=== PATIENT | female | born 1985 | race Hispanic/Latino ===

== ENCOUNTER 2016-04-18 20:50 | Emergency (ER) | payer OTHER ==
[~2016-04-18] VITALS: Ht 160 cm; Wt 98.0 kg
[~2016-04-18 20:50] MED LIST: ENDOCET 325 MG-1 TA1 PO; MOTRIN800 MG PO
[2016-04-18 20:58] VITALS: BP 140/84
--- NOTE | 2016-04-18 21:40 | ED INFLUENZA/URI COMPLAINT ---
History of Present Illness General Chief Complaint: Upper Respiratory Sx/Fever Stated Complaint: UPPER RESP SYMPTOMS Source: patient, old records Exam Limitations: no limitations Vital Signs & Intake/Output Vital Signs & Intake/Output Vital Signs Date Time Temp Pulse Resp B/P Pulse O2 O2 Flow FiO2 Ox Delivery Rate 04/18 2057 97.1 94 18 140/84 98 Room Air Room Air Allergies Coded Allergies: NO KNOWN ALLERGIES (07/31/11) Reconcile Medications Ibuprofen (Motrin) 800 MG TAB 1 TAB PO TID PRN PAIN OXYCODONE HCL/ACETAMINOPHEN (Endocet 5-325 Tablet) 1 TAB TAB 1 TAB PO Q6H PRN PAIN Triage Note: TRIAGE: 31 Y/O FEMALE PRESENTS C/O COUGH, CONGESTION SINCE TUESDAY. REPORTS PAIN WITH COUGHING. AFEBRILE IN TRIAGE. Triage Nurses Notes Reviewed? yes Onset: Abrupt Duration: day(s): (3), constant Timing: recent history Severity: mild, moderate Severity Numbers: 4 Prior Episodes/Possible Cause: occassional episodes No Modifying Factors: none Associated Symptoms: cough : No Patient currently breastfeeds: No HPI: 21-year-old female presents to emergency room complaining of a nonproductive cough and rhinorrhea and congestion for the past 3 days. She denies any fever chills abdominal pain shortness of breath chest pain nausea vomiting diarrhea. No ear pain no sick contacts or recent travel. She has not attempted taking any vrzd-slz-zszqeuj medications. There are no modifying factors or associated symptoms otherwise. Past History Travel History Traveled to [place] past 21 day No Medical History Any Pertinent Medical History? see below for history Respiratory: asthma Psychiatric: depression, PTSD Endocrine: diabetes Surgical History Surgical History: non-contributory Psychosocial History What is your primary language Swedish Tobacco Use: Never used ETOH Use: denies use Illicit Drug Use: denies illicit drug use Family History Hx Contributory? No Review of Systems Review of Systems Constitutional: Reports: see HPI. All Other Systems: Reviewed and Negative Comments Review of systems: See HPI, All other systems negative. Constitutional, no chills no fever, no malaise HEENT: No visual changes no sore throat no congestion, no ear pain Cardiovascular: No chest pain , no palpitation Skin, no jaundice no rashes, no change in skin Respiratory: No dyspnea Cough no sputum no hemoptysis GI: No nausea no vomiting, no diarrhea, no bloating/constipation : No dysuria No hematuria Muscle skeletal: No joint pain, no back pain, no neck pain, Neurologic: No numbness no headache Psych: No stress Heme/endocrine: No bruising no bleeding Immunology: No lymphadenopathy Physical Exam Physical Exam General Appearance: well developed/nourished, no apparent distress, alert, awake Ears, Nose, Throat: normal ENT inspection, moist mucous membrane, hearing grossly normal, Tympanic normal, pharynx normal Comments: Well-developed well-nourished patient in no apparent distress. Head/Face: Atraumatic, no maxillary/frontal sinus tenderness, no facial swelling Eyes: PERRL, EOMI, no conjunctival injection. No nystagmus Ear:External auditory canal and Tympanic membranes clear, no erythema, no FB. Nose: atraumatic.Normal inspection: No bleeding, no septal hematoma Throat: Moist mucous membranes.Pharynx normal. No pharyngeal erythema/exudate seen. No stridor/drooling or assymetry. No swelling or edema. Neck: Supple, no lymphadenopathy, FROM Back: FROM, Nontender Cardiovascular: Regular rate and rhythms no murmurs rubs or gallops, Respiratory: Chest nontender.There were no bony deformities, no asymmetry. No respiratory distress. Patient speaking in full complete sentences. Breath sounds clear to auscultation bilaterally: NO W/R/R Extremities: full range of motion Neuro: Alert and oriented x3 Skin: Warm & dry;No appreciable rash on exposed skin Psych: Mood affect normal, normal memory normal judgment. Core Measures Severe Sepsis Present: No Septic Shock Present: No Progress Differential Diagnosis: influenza, otitis, pneumonia, pharyngitis, sinusitis, BRONCHITIS Plan of Care: Advise supportive care prescription for Robitussin with codeine Z-Erich provided. Advised follow-up with her primary care she feels comfortable plan patient clinically appears well afebrile nontoxic appearing cleared for discharge Initial ED EKG: none Departure Departure Time of Disposition: 2145 Disposition: HOME OR SELF CARE Condition: Stable Clinical Impression Primary Impression: URI (upper respiratory infection) Referrals: TAMI BAEZA,BETSY Chatman (PCP/Family) Referred to [facility] as new patient No Additional Instructions: Z-Erich as directed, Robitussin with codeine for cough use the Nasonex you have at home to help with congestion as well as oimc-svm-folhxzw Mucinex. Tylenol Motrin for pain. Plenty of fluids rest these prescriptions were sent to [facility] pharmacy Departure Forms: Customer Survey General Discharge Information Prescriptions: Current Visit Scripts Robitussin AC (Guaifenesin-Codeine Syrup) 10 ML PO Q6HR PRN COUGH #200 ML Azithromycin (Zithromax) 1 DP PO AD #6 TAB 2 the first day followed by 1 for days 2-5
[2016-04-18] MEDS ORDERED: ZITHROMAX250 M2 PO (21:47)
[2016-04-18] MEDS ORDERED: GUAIFENESIN-COD10 ML PO (21:47)
[2016-09-03] MEDS ORDERED: WELLBUTRIN SR150 M1 PO (15:46)
[2016-09-03] MEDS ORDERED: ATORVASTATIN CA10 M1 PO (15:47)
[2016-09-03] MEDS ORDERED: KLONOPIN0.5 M1 PO (15:47)
[2016-09-03] MEDS ORDERED: PROTONIX40 M3 PO (15:47)
[2016-09-03] MEDS ORDERED: METFORMIN HCL750 M1 PO (15:47)
[2016-09-03] MEDS ORDERED: PRAZOSIN (15:48)
[2016-09-03] MEDS ORDERED: PROAIR HFA8.5 GM INH (15:48)
[2016-09-03] MEDS ORDERED: SYMBICORT 16010.2 GM INH (15:48)
== END 2016-04-18 21:55 ==
LOC: ERH 20:50
DX: J06.9 Acute upper respiratory infection, unspecified (principal)

== ENCOUNTER 2016-09-09 02:40 | Inpatient (IN) | payer OTHER ==
[~2016-09-09] VITALS: Ht 160 cm; Wt 112.9 kg
[~2016-09-09 02:40] MED LIST changes: +ATORVASTATIN CA10 M1 PO; +GUAIFENESIN-COD10 ML PO; +KLONOPIN0.5 M1 PO; +METFORMIN HCL750 M1 PO; +PRAZOSIN; +PROAIR HFA8.5 GM INH; +PROTONIX40 M3 PO; +SYMBICORT 16010.2 GM INH; +WELLBUTRIN SR150 M1 PO; +ZITHROMAX250 M2 PO
--- NOTE | 2016-09-09 09:40 | Admission Core Measures ---
Admission Meds I reviewed the following Meds: Current Medications Sig/Bekah Start time Last Medication Dose Stop Time Status Admin Cefazolin Sodium 2,000 MG ONCE 09/09 NR (Kefzol-Ancef Inj) 09/09 2358 Dexamethasone 10 MG ONCE 09/09 NR (Decadron) 09/09 2358 Heparin Sodium 5,000 UNIT ONCE 09/09 0000 NR (Porcine) 09/09 2358 Acute Coronary Syndrome Inclusion Criteria ACS Diagnosis No Inpatient Core Measures LDL Reminder: If No, please order W/I first 24hr of stay Congestive Heart Failure Inclusion Criteria CHF Diagnosis No Cerebrovascular accident Inclusion Criteria CVA/TIA Diagnosis No Inpatient Core Measures Bedside Swallow Eval Reminder: If BSE failed, place ST order Antithrombotic Reminder: Order Antithrombotic Medication by end of day 2 Antithrombotic Reminder: Document Reason Antithrombotic Not ordered by end of day 2 AFIB/Flutter Reminder: If Present, add to problem list AFIB/Flutter Reminder: Order Anticoag Medication for pts with AFIB/Flutter Atherosclerosis Reminder: If Present, add to problem list LDL Reminder: If No, please order W/I first 24hr of stay PT Order Reminder: If No, please order Venous thromboembolism Inpatient Core Measures VTE Risk Factors: Obesity, Surgery [facility] prophylaxis d/t No contraindications No VTE Pharm Prophylaxis d/t No contraindications Inclusion Criteria - Per Current guidelines, there needs to be overlap - treatment for the first 5 days of Warfarin therapy. - Parenteral Anticoagulation (IV or SC) needs to be - given along with Warfarin therapy. VTE Diagnosis No VTE Type NONE VTE Confirmed by (Test) NONE Problem List As ranked by this Provider includes Assessment & Plan 1. Status post gastric bypass for obesity HOME MEDS Home Med List Albuterol Sulfate (Proair Hfa) 90 MCG HFA.AER.AD 2 PUF INH Q4-6 PRN PRN ASTHMA (Reported) Atorvastatin Calcium 10 MG TABLET 1 TAB PO DAILY CHOLESTEROL (Reported) Budesonide/Formoterol Fumarate (Symbicort 160-4.5 Mcg Inhaler) 160 MCG-4.5 MCG/ ACTUATION HFA.AER.AD 2 PUF INH BID ASTHMA (Reported) Bupropion HCl (Wellbutrin Sr) 150 MG TABLET.ER 0.5 TAB PO DAILY PTSD ( Reported) Clonazepam (Klonopin) 0.5 MG TABLET 1 TAB PO DAILY NEEDED PRN ANXIETY ( Reported) Metformin HCl (Metformin HCl ER) 750 MG TAB.ER.24H 1 TAB PO BID DM II ( Reported) Pantoprazole Sodium (Protonix) 40 MG TABLET.DR 1 TAB PO DAILY GERD (Reported)
--- NOTE | 2016-09-09 11:58 | Operative Report ---
Operative/Inv Procedure Report Surgery Date: 09/09/16 Name of Procedure: Charlotte-en-Y gastric bypass Pre-Operative Diagnosis: Morbid obesity BMI of 44 Post-Operative Diagnosis: Same Estimated Blood Loss: less than 50ml Surgeon/Marine Insulator: ROSA BAEZA,MANSOOR MEDINA Anesthesia: general endotracheal tube IV Fluids: Lactated Ringer's Implants: None Urine Output: Not measured Drains: CARMELINA 1 Specimens: None Complications: None Condition: Stable Operative Indication: See admitting H&P Operative/Procedure Note Note: After informed consent and proper identification the patient was taken to the operating room and placed on the operating room table in the supine position. Venodyne stockings were applied she underwent a general endotracheal anesthetic abdomen was prepped and draped in normal sterile fashion using a Monisha Visiport and a 0 laparoscope through 1 cm incision left upper quadrant we entered the abdominal cavity without difficulty. We insufflated with 14 mm of CO2 pressure we had excellent visualization this liver was smooth and glistening. We placed additional trochars 25 mm trochars in the left subcostal margin, a 5 mm trocar in the right subcostal margin, a 12 mm trocar in the right mid abdomen. We inserted the Agatha liver retractor in the upper midline to retract the left lobe of the liver. We began dissection by using a ultrasonic scalpel taking down the angle his. The stomach was right up against the spleen and the left coral. We made a window between the tissue. We then began dissecting on the lesser curvature proximally past the third gastric vein approximate 10 cm from the GE junction and created a retrogastric space. We placed a few 5 mm clips on a small bleeder on the lesser curvature. We then passed a completely and stapler 60 cm purple cartridge with seam guard and fired transversely after having anesthesia remove the orogastric tube that they had placed to decompress the stomach. We then fired 2 more firings of the 60 cm purple cartridge to completely transect the newly created pouch from the remnant stomach. We then turned our attention to the omentum reflected towards the head identified the ligament of Treitz and measured 50 cm and divided the small bowel with a Endo MADHAV fisher 60 stapler. We marked the proximal biliopancreatic limb with a 10 mm clip from the 10 mm clip business services sales agent. We slightly divided the mesentery. We were able to divide the greater and lesser omentum with the ultrasonic scalpel. We had no tension pulling the Charlotte limb up to the gastric pouch and edgardo performed gastrojejunal anastomosis with a side to side purple stapler at approximately 30 cm by making an opening in the jejunum and the opening in the pouch we closed the opening with a 2 layered running 2-0 Vicryl suture we did a leak test using both air or methylene blue and there is no evidence of a leak we then measured the Charlotte limb 120 cm and performed a side to side anastomosis between the Charlotte limb and the biliopancreatic limb with a Endo MADHAV fisher load 60 cm stapler we placed 3 silk retraction sutures and then stapled across the opening with a fisher 60 cm stapler. We closed the mesenteric defect with 2-0 Tycron suture figure-of -eight 2. We removed all trochars and instruments under direct visualization. Removed the Estefany tube that was placed for evaluation of the leak tests. All sponge and instrument counts were correct we closed the incisions with 4-0 Monocryl subcuticular stitches Steri-Strips and dry sterile dressings were placed. The patient was extubated and taken the recovery room in stable condition Discharge Disposition: PACU
--- NOTE | 2016-09-09 14:05 | PN- Bariatrics ---
Subjective Subjective: The patient was seen this afternoon postoperatively. She reports that her pain is under adequate control and denies any nausea the current time. She had no other complaints and denies any chest pain or difficulty breathing. Objective Vital Signs and I&Os Vital signs: Blood pressure 140/76, pulse 78, temperature 90.9, O2 sats saturation 94% on room air I's and O's: 1500 ML's in of lactated Ringer's/positive postoperative void/EBL 50 ML/CARMELINA 60 mL Physical Exam: Gen.: Alert and in no obvious distress Skin: Warm and dry Cardiac: S1-S2 regular Pulmonary: Bilateral breath sounds are equal with good exchange Abdomen: Soft, obese, appropriate incisional tenderness, bowel sounds sluggish. Port sites are clean, dry, and intact. There is a CARMELINA 1 holding suction with serosanguineous drainage in the bulb Extremities: Bilateral lower extremities are warm without calf tenderness or significant edema. Assessment/Plan Assessment/Plan Assessment: 31-year-old female status post laparoscopic gastric bypass. Postoperatively the patient is progressing as expected and her pain is under adequate control. Plan: Stage I diet and nothing by mouth at midnight for an upper GI in the morning Out of bed and ambulate PRN pain medications, antiemetics, antipyretics. GI and DVT prophylaxis Follow-up morning laboratory studies Strict I's and O's Keep CARMELINA to self suction Incentive spirometry Resume home medications Every 6 hours Accu-Cheks with sliding scale insulin coverage 2 doses of postoperative prophylactic antibiotics Core Measures/Miscellaneous Venous Thromboembolism VTE Risk Factors: Obesity, Surgery VTE Contraindications: No Contraindications VTE Diagnosis: No VTE Type: NONE VTE Confirmed by (Test): NONE Beta Eliezer Is Beta Eliezer a Home Med? No Antibiotics Is Patient on Antibiotics? Yes If Yes: prophylaxis
[2016-09-09] MEDS ORDERED: HYCET 7.5 MG-3473 ML PO (14:06)
--- NOTE | 2016-09-09 14:12 | Patient Discharge Instructions ---
Discharge Instructions General Discharge Information You were seen/treated for: Morbid obesity You had these procedures: Laparoscopic gastric bypass Watch for these problems: Significantly increased pain, nausea, or temperatures over 101 Increased redness or drainage from around the incisions Chest pain or difficulty breathing No bath, but you may shower: Yes Other wound care: When you get home he may remove all dressings leaving white strips intact until seen by your surgeon. Shower regularly but no bath and pat dry incisions. Special Instructions: See preprinted information booklet Ambulate frequently May use Gas-X for gas pain Diet Recommended Diet: Bariatric Activity Activity Self Limited: Yes Pounds, do NOT lift more than: 10 Other activity limits: No driving or operating heavy machinery until okay with your surgeon and off all pain medications Acute Coronary Syndrome Inclusion Criteria At DC or during hospital stay patient has or had the following: ACS DIAGNOSIS No Discharge Core Measures Meds if any: Prescribed or Continued at Discharge Meds if any: NOT Prescribed or Continued at Discharge Congestive Heart Failure Inclusion Criteria At DC or during hospital stay patient has or had the following: CHF DIAGNOSIS No Discharge Core Measures Meds if any: Prescribed or Continued at Discharge Meds if any: NOT Prescribed or Continued at Discharge Cerebrovascular accident Inclusion Criteria At DC or during hospital stay patient has or had the following: CVA/TIA Diagnosis No Discharge Core Measures Meds if any: Prescribed or Continued at Discharge Meds if any: NOT Prescribed or Continued at Discharge Venous thromboembolism Inclusion Criteria VTE Diagnosis No VTE Type NONE VTE Confirmed by (Test) NONE Discharge Core Measures - Per Current guidelines, there needs to be overlap - treatment for the first 5 days of Warfarin therapy. - If discharged on Warfarin prior to 5 days of - overlap therapy, the patient will need to be - assessed for post discharge needs including - *Post discharge parental anticoagulation - *Warfarin and/or parental anticoagulation education - *Follow up date to check INR post discharge At least 5 days overlap therapy as Inpatient No Meds if any: Prescribed or Continued at Discharge Note: Overlap Therapy is Warfarin and Anticoagulant Meds if any: NOT Prescribed or Continued at Discharge
--- NOTE | 2016-09-09 14:14 | Surg Short-stay <48hrs Dis Sum ---
Visit Information Visit Dates Admission Date: 09/09/16 Discharge Date: 09/12/16 Surgical Short Stay DC Summary Admission Diagnosis: Morbid obesity Final Diagnosis: Same Procedure(s): Laparoscopic gastric bypass Summary/Significant Findings: The patient is and 09/09/2016. She was brought to the operating theater where she underwent a laparoscopic gastric bypass. Postoperative the patient's pain was under adequate control, she tolerated a stage I diet without nausea, and all laboratory studies/vital signs were stable. The patient was discharged with an uneventful hospital course. Condition at Discharge: Stable Discharge Disposition: home or self care Discharge instructions provided to patient/family: Yes Post discharge follow-up plan: Call the office to be seen in one week
[2016-09-09 14:50] VITALS: BP 144/100
[2016-09-09 14:54] VITALS: BP 144/100
[2016-09-09 17:09] VITALS: BP 144/100
[2016-09-09 19:24] VITALS: BP 118/80
[2016-09-09 22:04] VITALS: BP 140/82
[2016-09-10 00:52] VITALS: BP 138/82
[2016-09-10 04:45] VITALS: BP 110/68
--- NOTE | 2016-09-10 07:18 | PN- Bariatrics ---
Subjective Subjective: Reports nausea yesterday has since resolved. Currently npo awaiting upper gi study. Ambulated once this morning with some dizziness. No shortness of breath. No chest pains. Voiding well. No flatus yet. Objective Vital Signs and I&Os Vital Signs Date Time Temp Pulse Resp B/P B/P Pulse O2 O2 Flow FiO2 Mean Ox Delivery Rate 09/10 0600 97 Room Air 09/10 0445 98.3 76 20 110/68 95 09/10 0052 98.1 75 20 138/82 96 09/10 0035 92 95 09/10 0000 CPAP 09/09 2242 98 94 09/09 2204 98.7 95 18 140/82 95 Room Air 09/09 2200 95 Room Air 09/09 2000 95 Room Air 09/09 1924 98.6 93 19 118/80 95 09/09 1800 95 Room Air 09/09 1709 98.1 96 18 144/100 93 Room Air 09/09 1643 Room Air Room Air 09/09 1600 95 Room Air 09/09 1454 97.9 94 18 144/100 95 Room Air 09/09 1450 97.9 94 18 144/100 95 Room Air 09/09 1450 95 Room Air Intake & Output 09/10 0800 09/10 0000 09/09 1600 09/09 0800 09/09 0000 09/08 1600 Intake Total 1000 1300 Output Total 1530 350 Balance -530 950 Intake, IV 1000 1000 Intake, Oral 300 Output, 30 50 Drainage Output, Urine 1500 300 Patient 249 lb Weight Weight Reported by Patient Measurement Method Physical Exam: General - alert & oriented x 3. comfortable. no acute distress. Lungs - clear bilaterally. no w/r/r. Cardiac - s1s2. reg. Abdomen - soft. dressings c/d/i. CARMELINA drain with serosang drainage. expected betzaida- incisional tenderness. Extremities - warm bilaterally. no c/c/e. calves soft and nontender b/l. athrombics active. Current Medications: Current Medications Sig/Bekah Start time Last Medication Dose Route Stop Time Status Admin Acetaminophen 1,000 MG .STK-MED ONE 09/09 0719 DC IV 09/09 0720 Acetaminophen/ 15 ML Q6P PRN 09/09 1445 AC 09/09 Hydrocodone Bitart PO 2209 Albuterol Sulfate 2 PUF Q4 09/09 1000 AC 09/10 INH 0613 Budesonide/ 2 PUF BID 09/09 1000 AC 09/09 Formoterol Fumarate INH 2119 Bupropion HCl 75 MG DAILY 09/09 1000 AC 09/09 PO 1647 Cefazolin Sodium 1,000 MG IQ8 09/09 1600 DC 09/10 IV 09/10 0001 0015 Cefazolin Sodium 2,000 MG ONCE 09/09 0000 DC IV 09/09 2359 Clonazepam 0.5 MG TID PRN 09/09 1000 AC PO 09/16 0959 Dexamethasone 10 MG ONCE 09/09 0000 DC IV 09/09 2359 Doxazosin Mesylate 2 MG AT BEDTIME 09/09 2200 AC 09/09 PO 2118 Doxazosin Mesylate 1 MG DAILY 09/09 1000 AC 09/09 PO 1647 Fentanyl Citrate 250 MCG .STK-MED ONE 09/09 0719 DC IM 09/09 0720 Heparin Sodium 5,000 UNIT Q8 09/09 1400 AC 09/10 (Porcine) SC 0613 Heparin Sodium 5,000 UNIT ONCE 09/09 0000 DC (Porcine) SC 09/09 2359 Hydromorphone HCl 1 MG Q4P PRN 09/09 1445 AC 09/10 IV 0259 Insulin Aspart 0 Q6 09/09 1200 AC 09/10 SC 0613 Labetalol HCl 100 MG .STK-MED ONE 09/09 1027 DC IV 09/09 1028 Midazolam HCl 4 MG .STK-MED ONE 09/09 0719 DC IM 09/09 0720 Ondansetron HCl 4 MG Q6P PRN 09/09 1445 AC 09/10 IV 0259 Pantoprazole Sodium 40 MG DAILY 09/09 1000 AC 09/09 IV 1647 Potassium Chloride 20 MEQ Q8H 09/09 1645 AC 09/10 Dextrose/Sodium 1,000 ML IV 0107 Chloride Potassium Chloride 20 MEQ .Q8H 09/09 1445 CAN Dextrose/Sodium 1,000 ML IV Chloride Simethicone 40 MG Q6P PRN 09/09 1445 AC 09/09 PO 1647 Results Last 48 Hours of Labs: Laboratory Tests 09/10 625 Chemistry Sodium Pending Potassium Pending Chloride Pending Carbon Dioxide Pending Anion Gap Pending BUN Pending Creatinine Pending BUN/Creatinine Ratio Pending Hematology CBC w Diff Pending WBC Pending RBC Pending Hgb Pending Hct Pending MCV Pending MCH Pending RDW Pending Plt Count Pending MPV Pending PUBS MCHC Pending Assessment/Plan Assessment/Plan This 31-year-old female with hx morbic obesity (bmi 44) is POD#1 s/p lap gastric bypass nausea resolved after zofran currently npo awaiting upper gi study decrease iv fluids to 75 mls/hr accuchecks improving. off metformin. hep sc - dvt ppx protonix - gi ppx encouraged oob/ambulation IS teaching f/u labs and upper gi study monitor CARMELINA drain output betzaida-operative ancef complete will d/w Core Measures/Miscellaneous Venous Thromboembolism VTE Risk Factors: Obesity, Surgery VTE Contraindications: No Contraindications VTE Diagnosis: No VTE Type: NONE VTE Confirmed by (Test): NONE Beta Eliezer Is Beta Eliezer a Home Med? No Antibiotics Is Patient on Antibiotics? Yes If Yes: prophylaxis Is Patient on Antibiotics? Yes If Yes: prophylaxis
[2016-09-10 08:00] LABS: ABSOLUTE BASOPHIL COUNT 0 /CUMM (0.0-0.2); ABSOLUTE EOSINOPHIL COUNT 0 /CUMM (0.0-0.7); ABSOLUTE GRANULOCYTE CT 5.3 /CUMM (1.4-6.5); ABSOLUTE LYMPH COUNT 1.1 /CUMM (1.2-3.4); ABSOLUTE MONOCYTE COUNT 0.5 /CUMM (0.10-0.60); BASOPHIL % 0.2 % (0.0-2.0); EOSINOPHIL % 0.1 % (0-5); GRANULOCYTE % 76.7 % (42.2-75.2); HEMATOCRIT 37.7 % (37-47); MEAN CORPUSCULAR HGB 27.3 PG (27.0-31.0); MEAN CORPUSCULAR HGB CONC 33.2 G/DL (33.0-37.0); MEAN CORPUSCULAR VOLUME 82.2 FL (81.0-99.0); MEAN PLATELET VOLUME 8.8 FL (7.4-10.4); PLATELET COUNT 340 /CUMM (130-400); RBC DISTRIBUTION WIDTH 12.4 % (11.5-14.5); RED BLOOD CELL CT 4.59 /CUMM (4.20-5.40); WHITE BLOOD CELL COUNT 6.9 /CUMM (4.8-10.8)
--- NOTE | 2016-09-10 10:18 | RADIOLOGY REPORT ---
EXAMINATION: FLUOROSCOPY UPPER GI WITH GASTROGRAFIN WITH KUB CLINICAL INFORMATION: 1 day status post gastric bypass study. Postoperative evaluation. COMPARISON: None. TECHNIQUE: A preliminary protohistorian view of the abdomen was performed followed by a limited Gastrografin upper GI study using 30 ml of Gastroview with the patient in the semiupright position. 3 spot films and 2 seen in the loop series were acquired. FINDINGS: The preliminary protohistorian view of the abdomen demonstrates a drain and postsurgical suzette in the epigastric region. Mild gaseous distention of bowel loops is seen without abnormal bowel distention seen. Esophageal distensibility and motility is normal. The GE junction is located below the level of the diaphragm and no GE reflux seen. The remnant gastric pouch is normal with no abnormal distention or contrast leak seen. There is prompt emptying of contrast into the anastomosed small bowel, which is unremarkable in appearance. FLUOROSCOPY TIME: 14 seconds. IMPRESSION: Unremarkable postoperative appearance of the stomach status post gastric bypass surgery. No evidence of abnormal pouch distention, contrast leak or outlet obstruction seen.
[2016-09-10 22:00] VITALS: BP 142/84
[2016-09-11 07:21] VITALS: BP 128/90
--- NOTE | 2016-09-11 13:30 | PN- Bariatrics ---
Subjective Subjective: Patient with intermittent nausea and pain, pain medication is helping her. Objective Vital Signs and I&Os Vital Signs Date Time Temp Pulse Resp B/P B/P Pulse O2 O2 Flow FiO2 Mean Ox Delivery Rate 09/11 0721 98.5 82 18 128/90 96 Room Air 09/11 0600 96 09/100 97 Room Air 09/10 2199 98.5 79 16 142/84 97 Room Air 09/10 1600 97 Room Air Intake & Output 09/11 0809/11 0000 09/10 0809/10 0000 Intake Total 600 3092 667 7818 1300 Output Total 40 309 662 9057 350 Balance 560 540 440 -530 950 Intake, IV 600 418 239 4172 1000 Intake, Oral 500 560 300 Output, 40 60 20 30 50 Drainage Output, Urine 902 764 5984 300 Patient 249 lb Weight Physical Exam: Well-developed well-nourished no apparent distress. HEENT: Atraumatic, extraocular motion intact Neck: Supple, no lymphadenopathy Respiratory: No respiratory distress Abdomen: soft and mildly tender in the epigastrium and right upper quadrant around the drain site. Mild serous sanguinous discharge at dressing and approximately 30 mL in the CARMELINA drain Extremities: No edema, no calf pain Neuro: Alert and oriented x3 Psych: Mood affect normal, normal memory normal judgment. Skin is warm and dry Results Last 48 Hours of Labs: Laboratory Tests 09/10 625 Chemistry Sodium (137 - 145 mmol/L) 142 Potassium (3.5 - 5.1 mmol/L) 4.3 Chloride (98 - 107 mmol/L) 108 H Carbon Dioxide (22 - 30 mmol/L) 22 Anion Gap (5 - 16) 12 BUN (7 - 17 mg/dL) 4 L Creatinine (0.5 - 1.0 mg/dL) 0.6 Estimated GFR (>60 ml/min) > 60 BUN/Creatinine Ratio (7 - 25 %) 6.7 L Hematology CBC w Diff NO MAN DIFF REQ WBC (4.8 - 10.8 /CUMM) 6.9 RBC (4.20 - 5.40 /CUMM) 4.59 Hgb (12.0 - 16.0 G/DL) 12.5 Hct (37 - 47 %) 37.7 MCV (81.0 - 99.0 FL) 82.2 MCH (27.0 - 31.0 PG) 27.3 RDW (11.5 - 14.5 %) 12.4 Plt Count (130 - 400 /CUMM) 340 MPV (7.4 - 10.4 FL) 8.8 Gran % (42.2 - 75.2 %) 76.7 H Lymphocytes % (20.5 - 51.1 %) 15.8 L Monocytes % (1.7 - 9.3 %) 7.2 Eosinophils % (0 - 5 %) 0.1 Basophils % (0.0 - 2.0 %) 0.2 Absolute Granulocytes (1.4 - 6.5 /CUMM) 5.3 Absolute Lymphocytes (1.2 - 3.4 /CUMM) 1.1 L Absolute Monocytes (0.10 - 0.60 /CUMM) 0.5 Absolute Eosinophils (0.0 - 0.7 /CUMM) 0 Absolute Basophils (0.0 - 0.2 /CUMM) 0 PUBS MCHC (33.0 - 37.0 G/DL) 33.2 Recent Imaging Studies: Unremarkable upper GI series yesterday Assessment/Plan Assessment/Plan This 31-year-old female with hx morbic obesity (bmi 44) is POD#2 s/p lap gastric bypass Zofran as needed for nausea Stage I diet, tolerating DC IV fluids accuchecks normalizing hep sc - dvt ppx protonix - gi ppx encouraged oob/ambulation IS monitor CARMELINA drain output will re eval later today after dinner due to cont pain and nausea, possible dc then. d/w Core Measures/Miscellaneous Venous Thromboembolism VTE Risk Factors: Obesity, Surgery VTE Contraindications: No Contraindications VTE Diagnosis: No VTE Type: NONE VTE Confirmed by (Test): NONE Beta Eliezer Is Beta Eliezer a Home Med? No Antibiotics Is Patient on Antibiotics? Yes If Yes: prophylaxis
[2016-09-11 14:59] VITALS: BP 140/90
[2016-09-11 19:35] VITALS: BP 114/58
--- NOTE | 2016-09-12 07:06 | PN- Bariatrics ---
See Addendum Subjective Subjective: Feeling much better, walking in the halls yesterday and this morning, bowel movement 2, passing flatus, no nausea or vomiting, abdominal pain persists though tolerable with pain medication Objective Vital Signs and I&Os Vital Signs Date Time Temp Pulse Resp B/P B/P Pulse O2 O2 Flow FiO2 Mean Ox Delivery Rate 09/12 0600 96 Room Air 09/12 0134 84 93 09/12 0000 CPAP 09/11 2200 97 Room Air 09/11 1935 99.1 86 24 114/58 97 Room Air 09/11 1548 97 Room Air Room Air 09/11 1459 98.1 81 20 140/90 96 Room Air 09/11 1200 96 Room Air Room Air 09/11 0800 96 Room Air Room Air 09/11 0721 98.5 82 18 128/90 96 Room Air Intake & Output 09/12 0800 09/12 0000 09/11 1600 09/11 0800 09/11 0000 09/10 1600 Intake Total 720 315 534 958 3512 860 Output Total 450 380 450 40 560 420 Balance 270 -65 480 560 540 440 Intake, IV 600 75 450 600 600 300 Intake, Oral 120 240 480 500 560 Output, 80 40 60 20 Drainage Output, Urine 450 300 450 500 400 Patient 249 lb Weight CARMELINA: 20cc serosang, overnight Physical Exam: GEN: NAD CARD: s1s2 RRR PULM: CTAB ABD: Obese, soft, nd, mildly ttp upper abdomen, dressings removed, Steri-Strips intact and incisions CDI without erythema or ecchymosis, CARMELINA drain with erythematous drainage and slightly stained (serosang) dressing EXT: calves soft nt bl, no edema, ALPS on Assessment/Plan Assessment/Plan A: 31F POD3 sp cb n y gastric bypass, with postop nausea & abd pain, now improved, with return of bowel fxn, stable. P: OOB, ambulate DVT ppx; hep sq, alps Stg 1 fransisca diet kitty COSME DC planning will dw attending Core Measures/Miscellaneous Venous Thromboembolism VTE Risk Factors: Obesity, Surgery VTE Contraindications: No Contraindications VTE Diagnosis: No VTE Type: NONE VTE Confirmed by (Test): NONE Beta Eliezer Is Beta Eliezer a Home Med? No Antibiotics Is Patient on Antibiotics? Yes If Yes: prophylaxis
[2016-09-12 07:27] VITALS: BP 120/86
== END 2016-09-12 10:55 | DRG 403 ==
LOC: SDA 02:40 → ENRESERV 13:43 → 2NB 14:34 → ENPENDDIS 09-12 09:34 → 2NB 09-12 10:55
PROVIDERS: Physician Assistant Surgical; ADMIT Surgery
PROC: 0D164ZA Bypass Stomach to Jejunum, Percutaneous Endoscopic Approach (ICD-10-PCS; principal; 2016-09-09)
PROC: 3E0T3BZ Introduction of Anesthetic Agent into Peripheral Nerves and Plexi, Percutaneous Approach (ICD-10-PCS; 2016-09-09)
DX: E66.01 Morbid (severe) obesity due to excess calories (principal); Z68.41 Body mass index [BMI] 40.0-44.9, adult; J45.909 Unspecified asthma, uncomplicated; E11.8 Type 2 diabetes mellitus with unspecified complications; G47.33 Obstructive sleep apnea (adult) (pediatric); F43.10 Post-traumatic stress disorder, unspecified; K21.9 Gastro-esophageal reflux disease without esophagitis
CPT/HCPCS: 2NBP; 36415; 74240; 82436; J0131; J0690; J0780; J1100; J1170; J1644; J1885; J2405; J3490; J7042; S5012

== ENCOUNTER 2016-09-15 01:26 | Emergency (ER) | payer OTHER ==
[~2016-09-15] VITALS: Ht 160 cm; Wt 110.2 kg
[~2016-09-15 01:26] MED LIST changes: +HYCET 7.5 MG-3473 ML PO
--- NOTE | 2016-09-15 01:45 | ED GI/GU/ABDOMINAL COMPLAINT ---
See Addendum History of Present Illness General Chief Complaint: Abdominal Pain/Flank Pain Stated Complaint: S/P GASTRIC BYPASS SURG 09/09/16 CO PULLING PAIN Source: patient, family, old records Exam Limitations: no limitations Vital Signs & Intake/Output Vital Signs & Intake/Output Vital Signs Date Time Temp Pulse Resp B/P B/P Pulse O2 O2 Flow FiO2 Mean Ox Delivery Rate 09/15 0600 97.4 71 18 115/66 97 Room Air 09/15 0314 63 14 111/64 98 Room Air 09/15 0146 97.4 72 14 114/56 97 Room Air Allergies Coded Allergies: NO KNOWN ALLERGIES (NONE 09/09/16) Reconcile Medications Albuterol Sulfate (Proair Hfa) 90 MCG HFA.AER.AD 2 PUF INH Q4-6 PRN PRN ASTHMA (Reported) Budesonide/Formoterol Fumarate (Symbicort 160-4.5 Mcg Inhaler) 160 MCG-4.5 MCG/ ACTUATION HFA.AER.AD 2 PUF INH BID ASTHMA (Reported) Bupropion HCl (Wellbutrin Sr) 150 MG TABLET.ER 0.5 TAB PO DAILY PTSD ( Reported) Clonazepam (Klonopin) 0.5 MG TABLET 1 TAB PO DAILY NEEDED PRN ANXIETY ( Reported) Hydrocodone/Acetaminophen (Hycet 7.5 MG-325 MG/15 Ml Soln) 7.5 MG-325 MG/15 ML SOLUTION 15 ML PO Q4-6P PRN PAIN Pantoprazole Sodium (Protonix) 40 MG TABLET.DR 1 TAB PO DAILY GERD (Reported) [PRAZOSIN] PTSD (Reported) 1 MG IN AM.... 2MG IM PM Triage Nurses Notes Reviewed? yes ? N Is pt currently ? No HPI: Patient had a gastric bypass on September 09. Patient was discharged on the . This evening she began to feel a pulling sensation in her left upper quadrant. The pain was 8 out of 10. She had some nausea earlier today but that has resolved. There is no radiation of the pain. There are no aggravating or mitigating factors. There are no fevers or chills. Patient comes to the emergency room for evaluation. (JOSHUA BAEZA,DEREK Chatman) Past History Medical History Any Pertinent Medical History? see below for history Respiratory: asthma, obstructive sleep apnea Gastrointestinal: GERD Psychiatric: depression, PTSD Endocrine: diabetes History of MRSA: No History of VRE: No History of CDIFF: No Surgical History Surgical History: non-contributory Psychosocial History Who do you live with Spouse What is your primary language Vietnamese Tobacco Use: Never used ETOH Use: denies use Illicit Drug Use: denies illicit drug use Family History Hx Contributory? No (JOSHUA BAEZA,DEREK Chatman) Review of Systems Review of Systems Constitutional: Reports: no symptoms. EENTM: Reports: no symptoms. Respiratory: Reports: no symptoms. Cardiovascular: Reports: no symptoms. GI: Reports: see HPI, abdominal pain, nausea. Genitourinary: Reports: no symptoms. Musculoskeletal: Reports: no symptoms. Skin: Reports: no symptoms. Neurological/Psychological: Reports: no symptoms. Hematologic/Endocrine: Reports: no symptoms. Immunologic/Allergic: Reports: no symptoms. All Other Systems: Reviewed and Negative (JOSHUA BAEZA,DEREK Chatman) Physical Exam Physical Exam General Appearance: well developed/nourished, alert, awake, moderate distress Head: atraumatic, normal appearance Eyes: Bilateral: PERRL, EOMI. Ears, Nose, Throat, Mouth: hearing grossly normal, moist mucous membrane Neck: normal inspection, supple, full range of motion Respiratory: normal breath sounds, chest non-tender, no respiratory distress, lungs clear Cardiovascular: regular rate/rhythm, normal peripheral pulses Gastrointestinal: normal bowel sounds, soft, no organomegaly, tenderness (TO MINIMAL PALP) Back: normal inspection, normal range of motion Extremities: normal range of motion Neurologic/Psych: no motor/sensory deficits, awake, alert, oriented x 3, normal gait, normal mood/affect Skin: intact, normal color, warm/dry Core Measures ACS in differential dx? No Severe Sepsis Present: No Septic Shock Present: No (JOSHUA BAEZA,DEREK Chatman) Progress Differential Diagnosis: biliary colic, bowel obstruction, gastritis, SBO, POST OP PAIN Plan of Care: Orders Procedure Date/time Status COMPREHENSIVE METABOLIC PANEL 09/16 143 Complete CBC WITHOUT DIFFERENTIAL 09/16 143 Complete Current Medications Sig/Bekah Start time Last Medication Dose Stop Time Status Admin Sodium Chloride 1,000 ML BOLUS ONE 09/15 0730 AC 09/15 (Normal Saline 0.9%) 09/15 0929 0802 Laboratory Tests 09/15/16 0200: Anion Gap 11, Estimated GFR > 60, BUN/Creatinine Ratio 14.3, Glucose 113 H, Calcium 9.4, Total Bilirubin 0.9, AST 41 H, ALT 85 H, Alkaline Phosphatase 65, Total Protein 7.1, Albumin 3.9, Globulin 3.2, Albumin/Globulin Ratio 1.2, CBC w Diff NO MAN DIFF REQ, RBC 4.66, MCV 82.2, MCH 27.3, RDW 12.6, MPV 8.1, Gran % 60.0, Lymphocytes % 29.7, Monocytes % 7.2, Eosinophils % 2.7, Basophils % 0.4, Absolute Granulocytes 4.9, Absolute Lymphocytes 2.4, Absolute Monocytes 0.6, Absolute Eosinophils 0.2, Absolute Basophils 0, PUBS MCHC 33.2 Diagnostic Imaging: Viewed by Me: CT Scan. Discussed w/RAD: CT Scan. Radiology Impression: PATIENT: GERARDO FABIAN PRESENT AGE: 31 PATIENT ACCOUNT NO: [id number] : 85 LOCATION: [facility] ORDERING PHYSICIAN: DEREK LEWIS MD SERVICE DATE: 09/15/16 EXAM TYPE: CAT - CT ABD & PELVIS W ORAL & IV CO EXAMINATION: CT ABDOMEN AND PELVIS WITH CONTRAST CLINICAL INFORMATION: Postoperative complication. COMPARISON: TECHNIQUE: Multidetector volumetric imaging was performed of the abdomen and pelvis after the IV administration of 95 mL of Optiray 320 intravenous contrast. Oral contrast was also utilized for bariatric protocol. Sagittal and coronal reformatted images were obtained on the technologist's workstation. DLP: 1260 mGy-cm FINDINGS: LUNG BASES: Left basilar subsegmental atelectasis. The visualized cardiac structures are unremarkable. LIVER, GALLBLADDER, AND BILIARY TREE: The liver is normal in size, shape, and attenuation. No focal hepatic lesion or biliary ductal dilatation is present. The gallbladder is unremarkable with no evidence of radiopaque gallstones, gallbladder wall thickening, or obvious pericholecystic inflammatory changes. PANCREAS: Unremarkable. SPLEEN: Unremarkable. ADRENAL GLANDS: Unremarkable. KIDNEYS AND URETERS: The kidneys are normal in size, shape, and attenuation. No hydronephrosis, hydroureter, or calculi seen. No perinephric stranding. BLADDER: Unremarkable. GASTROINTESTINAL TRACT: Status post Charlotte-en-Y gastric bypass. No dilated loops of bowel or evidence of obstruction. No bowel wall thickening. No acute inflammatory changes. ABDOMINAL WALL: No significant hernia is appreciated. LYMPH NODES: Normal. VASCULAR: Unremarkable. 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 No adnexal mass. OSSEOUS STRUCTURES: Unremarkable. IMPRESSION: No acute findings of the abdomen or pelvis. Charlotte-en-Y gastric bypass. No obstruction. Left basilar subsegmental atelectasis. DICTATED BY: ADRIEL BRYSON MD DATE/TIME DICTATED: 09/15/16429 DAIRY FARMWORKER:LEANNA DATE/TIME TRANSCRIBED:09/15/16429 CONFIDENTIAL, DO NOT COPY WITHOUT APPROPRIATE AUTHORIZATION. <Electronically signed in Other Vendor System> SIGNED BY: BRAYDON BAEZA,ADRIEL 09/15/16435 Initial ED EKG: none Hand-Off Endorsed To: CAMERON ESPINOZA DO Endorsed Time: 0700 Pending: consult (SURGICAL) Comments: Discussed with Dr. Dillard. Patient will have an abdominal and pelvic CT bariatric protocol. (JOSHUA BAEZA,DEREK Chatman) Departure Departure Disposition: STILL A PATIENT Condition: Stable Clinical Impression Primary Impression: Upper abdominal pain, unspecified Referrals: ROSA BAEZA,MANSOOR GARRETT MD,BETSY Chatman (PCP/Family) Departure Forms: Customer Survey General Discharge Information (JOSHUA BAEZA,DEREK Chatman) Departure Comments 09/15/16 8:30 AM The patient was seen and evaluated by the surgical PA. She received Toradol. She currently has minimal to no pain. The patient was signed out to me by Dr. Lewis at 7 AM. (CAMERON ESPINOZA DO)
[2016-09-15 02:19] LABS: ABSOLUTE BASOPHIL COUNT 0 /CUMM (0.0-0.2); ABSOLUTE EOSINOPHIL COUNT 0.2 /CUMM (0.0-0.7); ABSOLUTE GRANULOCYTE CT 4.9 /CUMM (1.4-6.5); ABSOLUTE LYMPH COUNT 2.4 /CUMM (1.2-3.4); ABSOLUTE MONOCYTE COUNT 0.6 /CUMM (0.10-0.60); BASOPHIL % 0.4 % (0.0-2.0); EOSINOPHIL % 2.7 % (0-5); HEMATOCRIT 38.3 % (37-47); MEAN CORPUSCULAR HGB 27.3 PG (27.0-31.0); MEAN CORPUSCULAR HGB CONC 33.2 G/DL (33.0-37.0); MEAN CORPUSCULAR VOLUME 82.2 FL (81.0-99.0); MEAN PLATELET VOLUME 8.1 FL (7.4-10.4); PLATELET COUNT 390 /CUMM (130-400); RBC DISTRIBUTION WIDTH 12.6 % (11.5-14.5); RED BLOOD CELL CT 4.66 /CUMM (4.20-5.40); WHITE BLOOD CELL COUNT 8.1 /CUMM (4.8-10.8)
--- NOTE | 2016-09-15 04:36 | CT SCAN REPORT ---
EXAMINATION: CT ABDOMEN AND PELVIS WITH CONTRAST CLINICAL INFORMATION: Postoperative complication. COMPARISON: 06/10/2014 TECHNIQUE: Multidetector volumetric imaging was performed of the abdomen and pelvis after the IV administration of 95 mL of Optiray 320 intravenous contrast. Oral contrast was also utilized for bariatric protocol. Sagittal and coronal reformatted images were obtained on the technologist's workstation. DLP: 1260 mGy-cm FINDINGS: LUNG BASES: Left basilar subsegmental atelectasis. The visualized cardiac structures are unremarkable. LIVER, GALLBLADDER, AND BILIARY TREE: The liver is normal in size, shape, and attenuation. No focal hepatic lesion or biliary ductal dilatation is present. The gallbladder is unremarkable with no evidence of radiopaque gallstones, gallbladder wall thickening, or obvious pericholecystic inflammatory changes. PANCREAS: Unremarkable. SPLEEN: Unremarkable. ADRENAL GLANDS: Unremarkable. KIDNEYS AND URETERS: The kidneys are normal in size, shape, and attenuation. No hydronephrosis, hydroureter, or calculi seen. No perinephric stranding. BLADDER: Unremarkable. GASTROINTESTINAL TRACT: Status post Charlotte-en-Y gastric bypass. No dilated loops of bowel or evidence of obstruction. No bowel wall thickening. No acute inflammatory changes. ABDOMINAL WALL: No significant hernia is appreciated. LYMPH NODES: Normal. VASCULAR: Unremarkable. 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 No adnexal mass. OSSEOUS STRUCTURES: Unremarkable. IMPRESSION: No acute findings of the abdomen or pelvis. Charlotte-en-Y gastric bypass. No obstruction. Left basilar subsegmental atelectasis.
--- NOTE | 2016-09-15 07:37 | Cons- Bariatrics Surg ---
General Information and HPI Consulting Request Date of Consult: 09/15/16 Requested By: Reason for Consult: abdominal pain s/p gastric bypass Source of Information: patient Exam Limitations: no limitations History of Present Illness: This 31 year old female with hx gerd, asthma, carlso a, depression, dm, presents 5 days s/p laparoscopic gastric bypass by Dr.Craig Baeza. She was discharged on post-op day #3 after a normal upper gi study (no leak or obstruction), with prescriptions for pain control and gi prophylaxis. Although she had a bowel movement on the day of her discharge, she reports she hasn't had another one since and feels "gassy and bloated". Seems to be tolerating stage 1 bariatric diet, but reports left upper abdominal pain and some nausea at times. She is passing some flatus. No shortness of breath. No chest pains. Occasional dizziness, exacerbated by movement. No difficulties urinating. She believes she feels a little better after receiving 1 liter of iv fluids in the ED. Allergies/Medications Allergies: Coded Allergies: NO KNOWN ALLERGIES (NONE 09/09/16) Home Med List: Albuterol Sulfate (Proair Hfa) 90 MCG HFA.AER.AD 2 PUF INH Q4-6 PRN PRN ASTHMA (Reported) Budesonide/Formoterol Fumarate (Symbicort 160-4.5 Mcg Inhaler) 160 MCG-4.5 MCG/ ACTUATION HFA.AER.AD 2 PUF INH BID ASTHMA (Reported) Bupropion HCl (Wellbutrin Sr) 150 MG TABLET.ER 0.5 TAB PO DAILY PTSD ( Reported) Clonazepam (Klonopin) 0.5 MG TABLET 1 TAB PO DAILY NEEDED PRN ANXIETY ( Reported) Hydrocodone/Acetaminophen (Hycet 7.5 MG-325 MG/15 Ml Soln) 7.5 MG-325 MG/15 ML SOLUTION 15 ML PO Q4-6P PRN PAIN Pantoprazole Sodium (Protonix) 40 MG TABLET.DR 1 TAB PO DAILY GERD (Reported) [PRAZOSIN] PTSD (Reported) 1 MG IN AM.... 2MG IM PM Past History Medical History Respiratory: asthma, obstructive sleep apnea Gastrointestinal: GERD Psychiatric: depression, PTSD Endocrine: diabetes Surgical History Pertinent Surgical History: gastric bypass (09/09/16) Psychosocial History ETOH Use: denies use Illicit Drug Use: denies illicit drug use Review of Systems Review of Systems: admits: abdominal discomfort, nausea, bloating, constipation, some dizziness denies: shortness of breath, chest pains, dysuria Exam & Diagnostic Data Vital Signs and I&O Vital Signs Date Time Temp Pulse Resp B/P B/P Pulse O2 O2 Flow FiO2 Mean Ox Delivery Rate 09/15 0600 97.4 71 18 115/66 97 Room Air 09/15 0314 63 14 111/64 98 Room Air 09/15 0146 97.4 72 14 114/56 97 Room Air Intake & Output 09/15 0800 09/15 0000 09/14 1600 09/14 0800 09/14 0000 09/13 1600 Intake Total 1000 Output Total Balance 1000 Intake, IV 1000 Patient 243 lb Weight Physical Exam: General - alert & oriented x 3. uncomfortable. no acute distress. Lungs - clear bilaterally. no w/r/r. Cardiac - s1s2. reg. Abdomen - obese. soft. expected incisional tenderness. incisions covered by steri strips. no acute abdominal findings. no bowel sounds appreciated. Extremities - warm bilaterally. no c/c/e. calves soft and nontender b/l. Neuro - no focal deficits. speech smooth and coordinated. Last 24 Hours of Labs: Laboratory Tests 09/15 0200 Chemistry Sodium (137 - 145 mmol/L) 139 Potassium (3.5 - 5.1 mmol/L) 4.1 Chloride (98 - 107 mmol/L) 103 Carbon Dioxide (22 - 30 mmol/L) 25 Anion Gap (5 - 16) 11 BUN (7 - 17 mg/dL) 10 Creatinine (0.5 - 1.0 mg/dL) 0.7 Estimated GFR (>60 ml/min) > 60 BUN/Creatinine Ratio (7 - 25 %) 14.3 Glucose (65 - 99 mg/dL) 113 H Calcium (8.4 - 10.2 mg/dL) 9.4 Total Bilirubin (0.2 - 1.3 mg/dL) 0.9 AST (14 - 36 U/L) 41 H ALT (9 - 52 U/L) 85 H Alkaline Phosphatase (<127 U/L) 65 Total Protein (6.3 - 8.2 g/dL) 7.1 Albumin (3.5 - 5.0 g/dL) 3.9 Globulin (1.9 - 4.2 gm/dL) 3.2 Albumin/Globulin Ratio (1.1 - 2.2 %) 1.2 Hematology CBC w Diff NO MAN DIFF REQ WBC (4.8 - 10.8 /CUMM) 8.1 RBC (4.20 - 5.40 /CUMM) 4.66 Hgb (12.0 - 16.0 G/DL) 12.7 Hct (37 - 47 %) 38.3 MCV (81.0 - 99.0 FL) 82.2 MCH (27.0 - 31.0 PG) 27.3 RDW (11.5 - 14.5 %) 12.6 Plt Count (130 - 400 /CUMM) 390 MPV (7.4 - 10.4 FL) 8.1 Gran % (42.2 - 75.2 %) 60.0 Lymphocytes % (20.5 - 51.1 %) 29.7 Monocytes % (1.7 - 9.3 %) 7.2 Eosinophils % (0 - 5 %) 2.7 Basophils % (0.0 - 2.0 %) 0.4 Absolute Granulocytes (1.4 - 6.5 /CUMM) 4.9 Absolute Lymphocytes (1.2 - 3.4 /CUMM) 2.4 Absolute Monocytes (0.10 - 0.60 /CUMM) 0.6 Absolute Eosinophils (0.0 - 0.7 /CUMM) 0.2 Absolute Basophils (0.0 - 0.2 /CUMM) 0 PUBS MCHC (33.0 - 37.0 G/DL) 33.2 Imaging Results: EXAMINATION: CT ABDOMEN AND PELVIS WITH CONTRAST CLINICAL INFORMATION: Postoperative complication. COMPARISON: 06/10/2014 TECHNIQUE: Multidetector volumetric imaging was performed of the abdomen and pelvis after the IV administration of 95 mL of Optiray 320 intravenous contrast. Oral contrast was also utilized for bariatric protocol. Sagittal and coronal reformatted images were obtained on the technologist's workstation. DLP: 1260 mGy-cm FINDINGS: LUNG BASES: Left basilar subsegmental atelectasis. The visualized cardiac structures are unremarkable. LIVER, GALLBLADDER, AND BILIARY TREE: The liver is normal in size, shape, and attenuation. No focal hepatic lesion or biliary ductal dilatation is present. The gallbladder is unremarkable with no evidence of radiopaque gallstones, gallbladder wall thickening, or obvious pericholecystic inflammatory changes. PANCREAS: Unremarkable. SPLEEN: Unremarkable. ADRENAL GLANDS: Unremarkable. KIDNEYS AND URETERS: The kidneys are normal in size, shape, and attenuation. No hydronephrosis, hydroureter, or calculi seen. No perinephric stranding. BLADDER: Unremarkable. GASTROINTESTINAL TRACT: Status post Charlotte-en-Y gastric bypass. No dilated loops of bowel or evidence of obstruction. No bowel wall thickening. No acute inflammatory changes. ABDOMINAL WALL: No significant hernia is appreciated. LYMPH NODES: Normal. VASCULAR: Unremarkable. 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 No adnexal mass. OSSEOUS STRUCTURES: Unremarkable. IMPRESSION: No acute findings of the abdomen or pelvis. Charlotte-en-Y gastric bypass. No obstruction. Left basilar subsegmental atelectasis. DICTATED BY: ADRIEL BRYSON MD DATE/TIME DICTATED:09/15/16429 COLDFUSION:LEANNA DATE/TIME TRANSCRIBED:09/15/16429 Assessment/Plan Assessment/Plan This 31 year old female with hx gerd, asthma, carlos a, depression, dm, presents 5 days s/p laparoscopic gastric bypass by Dr.Craig Baeza, with no evidence of abnormalities by her upper gi study or CT scan. Labs and vitals normal. Her symptoms are somewhat expected for a patient 5 days post-op gastric bypass, with evidence of gas/bloating, pain, and constipation recommend another 1 liter of NS toradol 30 mg iv x one try liquid carafate, which can be continued at home four times daily x 3 weeks continue protonix at home. give protonix 40 mg iv in ED try dulcolax [place] x 1 and milk of mag x 1 simethicone as needed ambulation encouraged d/w she understands and agrees with the plan Consult Acknowledgment - Thank you for your consult request.
[2016-09-15] MEDS ORDERED: CARAFATE1 G1 PO (08:26)
[2016-09-15 08:36] VITALS: BP 121/70
== END 2016-09-15 08:37 ==
LOC: ERH 01:26
PROVIDERS: Emergency Medicine
DX: R10.12 Left upper quadrant pain (principal)
CPT/HCPCS: 74177; 96361; 96374; 96375; J1885